=== PATIENT | female | born 1990 | race Caucasian/White ===

== ENCOUNTER 2025-02-26 13:40 | Emergency (ER) | payer BC, SELFPAY ==
--- NOTE | 2025-02-26 13:49 | ED.URI ---
HPI - URI/Sore Throat General Chief Complaint: Upper Respiratory Infection Stated Complaint: SINUS CONGESTION Time Seen by Provider: 02/26/25 14:30 Source: patient Mode of arrival: ambulatory Limitations: no limitations History of Present Illness HPI Narrative: Rhea is a 34-year-old female patient presenting to the clinic today with complaints of sinus congestion for over 1 week. She reports 1 month ago she was diagnosed with sinusitis and given amoxicillin and she had finished the antibiotic when her symptoms improved however for over 1 week she has had cough, left sinus pressure, and blowing out some green nasal drainage. She denies any fever or chills. Patient did take 60 mg prednisone this morning Does report having recurrent sinus infections maxillary sinus due to having a root canal procedure. Patient has history of MS and is taking oreclizumab MD elicited complaint: sore throat and nasal congestion Related Data Home Medications ?Medication ?Instructions ?Recorded ?Confirmed ?Last Taken ?Type ocrelizumab 30 mg/mL intravenous 600 mg IV [id number] 02/26/25 02/26/25 Unknown History solution (Ocrevus) Allergies Allergy/AdvReac Type Severity Reaction Status Date / Time gabapentin Allergy Severe Rash Verified 02/26/25 14:24 tramadol Allergy Severe Rash Verified 02/26/25 14:24 erythromycin base AdvReac Severe Abdominal Verified 02/26/25 14:24 Pain Review of Systems Review of Systems: Pertinent positives per HPI. Patient denies any fever, chills, rash, headache, visual changes, dizziness, cough, shortness of breath, chest pain, palpitations, nausea, vomiting, diarrhea, constipation, abdominal pain, or any urinary issues. PMFSH Comments At the time of my signature, I reviewed and agree with the nursing past medical, surgical, social, and family history. There is no relevant family history pertinent to the patient complaint. Exam Narrative: General: Well-developed, well nourished, in no apparent distress Head: Normocephalic, atraumatic Eyes: Pupils equally round and reactive to light bilaterally, EOM intact, sclera and conjunctive clear, no discharge, lids normal Ears: TMs intact and congested, ear canals clear, no drainage, grossly hearing normal. Nose: Nares patent, green nasal discharge, moderate inflammation, left maxillary sinus tenderness. Mouth: Oral pharynx without lesions or masses, good dentition, MMM. Postnasal drip Neck: Supple, trachea midline, no enlargement of anterior or posterior cervical nodes, no thyroid masses or goiter palpable. Cardio: Regular rate and rhythm, s1 and s2 normal, no murmur appreciated. Resp: Clear to auscultation bilaterally, no rhonchi, rales, wheezing or rubs Course Course Emergency Course: Portions of this record may have been created with voice recognition software. Level of Care: Express Care Visit Vital Signs Vital signs: Vital Signs Temperature 36.8 C 02/26/25 14:20 Pulse Rate 94 02/26/25 14:20 Respiratory Rate 16 02/26/25 14:20 Blood Pressure 114/83 02/26/25 14:20 Pulse Oximetry 100 02/26/25 14:20 Temperature 36.8 C 02/26/25 14:20 Pulse Rate 94 02/26/25 14:20 Respiratory Rate 16 02/26/25 14:20 Blood Pressure 114/83 02/26/25 14:20 Pulse Oximetry 100 02/26/25 14:20 Vital signs reviewed MDM - URI/Sore Throat MDM Narrative Medical decision making narrative: At the time of visit patient is resting comfortably on the exam table. Patient appears to be nontoxic. Complaints of sinus congestion for over 1 week. She reports 1 month ago she was diagnosed with sinusitis and given amoxicillin and she had finished the antibiotic when her symptoms improved however for over 1 week she has had cough, left sinus pressure, and blowing out some green nasal drainage. She denies any fever or chills. Does report having recurrent sinus infections maxillary sinus due to having a root canal procedure. Patient did start 60 mg of prednisone this morning. Patient has history of MS and is taking oreclizumab. On exam patient has left maxillary tenderness, green nasal discharge, moderate turbinate inflammation, TMs are congested, lung sounds are clear, heart rates regular rate rhythm. Plan: I suspect patient has acute maxillary sinusitis. Prescription for Augmentin was sent to the pharmacy. Patient may continue steroid as directed. Supportive measures were discussed with the patient and they voiced understanding discharge instructions and agrees to treatment plan. Return precautions reviewed Differential Diagnosis Differential diagnosis: Likely upper respiratory infection, otitis media, sinusitis, viral infection, bronchitis, influenza, pharyngitis and other (COVID) Discharge Plan Discharge Clinical Impression: Acute maxillary sinusitis Qualifiers: Recurrence: recurrent Qualified Code(s): J01.01 - Acute recurrent maxillary sinusitis Patient Disposition: Home Condition: Stable Instructions: Antibiotic Form, Sinusitis (ED) Additional Instructions: Take prescription medications only as prescribed-Augmentin Continue prednisone as prescribed Increase fluids and stay well hydrated May take Tylenol or motrin as directed on bottle for pain/fever May use Flonase 1 spray in each nare daily May take OTC antihistamines such as Zyrtec or Claritin daily as directed on bottle May apply Vicks vapor rub to chest to open sinuses Sinus rinses for congestion Cepacol spray, cough drops, throat lozenges, warm tea with honey/lemon, gargle salt water to soothe throat BRAT diet for diarrhea Clear liquids x 24 hours then advance as tolerated for nausea/vomiting Go to the ED if you develop a worsening in your condition- high fever not controlled by Tylenol or Motrin, dehydration, weakness, lethargy, shortness of breath, or chest pain. Follow up with your PCP in 3-5 days if symptoms persist. Patient Language: Armenian Prescriptions: New amoxicillin-pot clavulanate 875-125 mg tablet 1 tablet PO Q12H 10 Days Qty: 20 0RF No Action Ocrevus 30 mg/mL solution 600 mg IV [id number] Follow-up/Referrals: Agnes,Ankit [Other] Time of Disposition: 14:29 Quality NIHSS Nursing Documentation ED NIHSS nursing documentation: reviewed/agree
[2025-02-26 14:20] VITALS: BP 114/83; PULSE 94; RESP 16; TEMP 36.8; O2SAT 100
== END 2025-02-26 14:39 | disposition home or self-care (01) ==
PROVIDERS: Emergency Provider Nurse Practitioner Family
DX: J01.01 Acute recurrent maxillary sinusitis (principal); G35.D Multiple sclerosis, unspecified; E03.9 Hypothyroidism, unspecified
CPT/HCPCS: 99203; G0463